=== PATIENT | female | born 1960 | race Caucasian/White ===

== ENCOUNTER → 2017-06-25 | Outpatient (CLI) | payer BC ==
[~2017-06-25] MED LIST: SIMV-150 PO
[2017-06-25 12:44] LABS: ALT/SGPT 20 U/L (12-78); BLOOD UREA NITROGEN 15 mg/dl (7-18); BUN/CREATININE RATIO 22.2 (10-20); CALCIUM 9.3 mg/dl (8.5-10.1); CARBON DIOXIDE 25 mmol/L (21-32); CHLORIDE 107 mmol/L (98-107); CHOLESTEROL 266 mg/dl (0-200); CREATININE 0.69 mg/dl (0.60-1.20); GLUCOSE 81 mg/dl (70-99); POTASSIUM 3.9 mmol/L (3.5-5.1); SODIUM 140 mmol/L (136-145); TRIGLYCERIDES 89 mg/dl (0-150); VERY LOW DENSITY LIPOPROT CALC 18 mg/dl
[2017-06-25 12:47] LABS: ALB/GLOB RATIO 1.1 (0.9-2); ALKALINE PHOSPHATASE 70 U/L (45-117); AST/SGOT 12 U/L (15-37); CHOLESTEROL/HDL RATIO 3.8; HDL CHOLESTEROL 70 mg/dl; LDL CHOLESTEROL CALCULATED 178 mg/dl
== END | disposition home or self-care (01) ==
LOC: C.LABBFT 09:37
PROVIDERS: ATTEND Physician Assistant Medical
DX: E78.00 Pure hypercholesterolemia, unspecified (principal); M19.90 Unspecified osteoarthritis, unspecified site; R07.89 Other chest pain; Q76.5 Cervical rib; Z63.6 Dependent relative needing care at home

== ENCOUNTER → 2018-04-01 | Outpatient (CLI) | payer OTHER ==
--- NOTE | 2018-04-01 11:42 | DIAGNOSTIC IMAGING REPORT ---
C-SPINE ROUTINE 4 OR 5 VIEWS, THORACIC SPINE 3 VIEWS ROUTINE HISTORY: 57 years-old Female NECK PAIN acute neck and mid back pain COMPARISON: None available TECHNIQUE: 5 views of the cervical spine and 3 views of the thoracic spine FINDINGS: CERVICAL: Mild kyphotic curvature of the cervical spine centered at C4-C5. Moderate intervertebral disc space narrowing is seen at C4-C5, C5-C6 and C6-C7. Mild spondylitic spurring is noted at several levels. There is no acute fracture, subluxation or significant bony neuroforaminal stenosis. There is suggested mild right-sided bony neuroforaminal stenosis at C4-C5 and C5-C6. No prevertebral soft tissue swelling. Imaged lung apices appear clear. THORACIC: No acute fracture or subluxation. Mild multilevel spondylitic spurring without significant intervertebral disc space narrowing. Imaged lung gonzalez appear clear. IMPRESSION: 1. No acute fracture or subluxation of the cervical or thoracic spine. 2. Multilevel degenerative changes of the cervical spine as detailed above. The above report was generated using voice recognition software. It may contain grammatical, syntax or spelling errors. Electronically signed by: Steve Jimenez M.D. 04/01/2018 11:41 AM Dictated Date/Time: 04/01/2018 11:37 AM
[2018-04-01 13:35] LABS: ALBUMIN 3.7 gm/dl (3.4-5.0); ALKALINE PHOSPHATASE 66 U/L (45-117); ALT/SGPT 20 U/L (12-78); AST/SGOT 14 U/L (15-37); BLOOD UREA NITROGEN 15 mg/dl (7-18); CALCIUM 9.2 mg/dl (8.5-10.1); CARBON DIOXIDE 26 mmol/L (21-32); CHOLESTEROL 281 mg/dl (0-200); CREATININE 0.68 mg/dl (0.60-1.20); GLUCOSE 86 mg/dl (70-99); LDL CHOLESTEROL CALCULATED 197 mg/dl; SODIUM 140 mmol/L (136-145); TOTAL PROTEIN 7.2 gm/dl (6.4-8.2)
== END | disposition home or self-care (01) ==
LOC: C.LABPVFM 10:51
PROVIDERS: ATTEND Nurse Practitioner Family
DX: M54.2 Cervicalgia (principal); M54.89 Other dorsalgia

== ENCOUNTER 2024-02-29 06:08 | Inpatient (IN) ==
--- NOTE | 2024-02-17 11:12 | Anesthesiology Consultation ---
Date of Service February 17, 2024 Assessment & Plan (1) Encounter for pre-operative examination: - PCP pre-operative evaluation 02/14/24 [place]: "...cleared as a low risk for surgery. Anesthesia should be aware of her bradycardia Hx as below. Hx bradycardia with anesthesia - patient notes that her HR was low during her last colonoscopy. Denies having any issues with prior colonoscopies. Denies any symptoms during the time of colonoscopy. - 02-14-24 EKG: Sinus Yusuf (50), normal..." - Per lpn rn on 02/17/24: No known infectious disease contacts, current infectious disease symptoms in past 10 days or COVID positive test result in the past 30 days. Chart Review Chart Review: Acceptable Risk for Surgery and Patient NOT seen in Pre Admission Testing History Surgery Operation Date: 02/29/24 11:05 Proposed Procedures p L5-S1 Decompression and Fusion with Spinal Cord Monitoring - Андрей Avitia, Height/Weight Height: 5 ft 1 in Weight: 72.575 kg Allergies Allergy/AdvReac Type Severity Reaction Status Date / Time strawberry Allergy Intermediate HIVES Verified 02/17/24 10:13 prednisone AdvReac Intermediate mood Verified 02/17/24 10:13 swings/emotional disturbances shellfish derived AdvReac Intermediate Diarrhea Verified 02/17/24 10:13 Medications Home Medications Medication Instructions Recorded Confirmed Last Taken doxylamine succinate 25 mg tablet 25 mg PO HS PRN Sleep 03/24/22 02/17/24 Unknown (Sleep Aid (doxylamine)) atorvastatin 10 mg tablet 10 mg PO HS #90 tabs 02/01/24 02/17/24 Unknown celecoxib 200 mg capsule (Celebrex) 200 mg PO QAM 02/17/24 02/17/24 Unknown cholecalciferol (vitamin D3) 25 5,000 unit PO BID 02/17/24 02/17/24 Unknown mcg (1,000 unit) tablet (Vitamin D3) diphenhydramine 25 1 tab PO HS 02/17/24 02/17/24 Unknown mg-acetaminophen 500 mg tablet (Acetaminophen PM Extra Strength) glucosamine 750 [id number] 1 tab PO QAM 02/17/24 02/17/24 Unknown no1 644 mg-C 30 mg-ross 1 mg tablet (Osteo Bi-Flex Triple Strength) Past Medical History Medical History (Updated 02/17/24 @ 11:07 by Pat Rich PA-C) Chronic back pain History of colitis hx - last episode at the beginning of March 2022 History of COVID-24 September 2021 - cold symptoms and loss of taste and smell. resolved Hx of squamous cell carcinoma arm Hyperlipidemia Osteoarthritis Paresthesia left lower extremity and foot - chronic, r/t back issues Pityriasis rosea Past Family History Family History Father Myocardial infarction Mother Myocardial infarction Other No family history of adverse response to anesthesia Denies family history of Ovarian cancer Prostate cancer Breast cancer Colorectal cancer Past Surgical History Surgical History H/O squamous cell carcinoma excision History of laparoscopy x2 Hx of colonoscopy S/P [place]-BSO Social History Smoking Status: Former smoker tobacco type: cigarettes Smoking cigarettes per day: 10 Do You Dip or Chew Tobacco: No Smoking End Date: 01/2022 Hx Alcohol Use: Yes Alcohol type: beer alcohol intake frequency: a few times a month Hx Substance Use: No substance use type: does not use Lab Results Anesthesia Preop Results Results Anesthesia Widget: WBC 6.29 K/ul (4.8-10.8) 02/16/24 Hgb 13.4 g/dl (12.0-16.0) 02/16/24 Hct 41.2 % (37.0-47.0) 02/16/24 Plt 227 K/uL (130-400) 02/16/24 Na 139 mmol/L (136-145) 02/16/24 K 4.1 mmol/L (3.5-5.1) 02/16/24 Cl 107 mmol/L (98-107) 02/16/24 CO2 26 mmol/L (21-32) 02/16/24 BUN 14 mg/dl (6-23) 02/16/24 Creat 0.68 mg/dl (0.6-1.2) 02/16/24 Glucose Level 96 mg/dl (70-99(Fasting)) 02/16/24 PT 9.9 Seconds (9.0-12.0) 02/16/24 PTT 25 Seconds (21-31) 02/16/24 INR 0.9 (0.9-1.1) 02/16/24 Urine Color Yellow 02/16/24 Urine Appearance Clear (Clear) 02/16/24 Urine pH 5.5 (4.5-7.5) 02/16/24 Urine Specific [place] 1.006 (1.000-1.030) 02/16/24 Urine Protein Negative (Negative) 02/16/24 Urine Glucose (UA) Negative (Negative) 02/16/24 Urine Ketones Negative (Negative) 02/16/24 Urine Blood Negative (Negative) 02/16/24 Urine Nitrite Negative (Negative) 02/16/24 Urine Bilirubin Negative (Negative) 02/16/24 Urine Urobilinogen Negative (Negative) 02/16/24 Urine Leukocyte Esterase Trace (Negative) H 02/16/24 Urine WBC (Auto) 0-5 /hpf (0-5) 02/16/24 Urine RBC (Auto) 3-5 /hpf (0-2) H 02/16/24 Urine Hyaline Casts (Auto) 0-2 /lpf (0-2) 02/16/24 Urine Epithelial Cells (Auto) 0-2 /hpf (0-2) 02/16/24 Urine Bacteria (Auto) None Seen (None Seen) 02/16/24 Blood Type A Positive 02/16/24 Antibody Screen NEGATIVE 02/16/24 Testing Electrocardiogram Date: 02/16/24 Sinus bradycardia, rate 49 bpm Chest X-Ray Date: 02/16/24 No acute process. Other Testing Low dose lung CT 01/12/24 1. Mild emphysema. 2. Stable 3 mm right upper lobe subpleural nodule. No new or suspicious pulmonary nodules
[2024-02-29] MEDS: ACETAMINOPHEN 500 MG TAB PO SCH ×2 (06:48→20:57)
[2024-02-29] MEDS: LR 15ML/HR IV SCH (06:48)
[2024-02-29] MEDS: GABAPENTIN 600 MG DOSE PO SCH (06:48)
[2024-02-29] MEDS: LR 60ML/HR IV SCH (06:49)
[2024-02-29] MEDS: CeleBREX 200 MG CAP PO SCH (06:49)
[2024-02-29] MEDS ORDERED: KETAMINE HCL 10MG/ML SYR ONE (07:01)
[2024-02-29] MEDS ORDERED: HYDROmorphone INJ 2 MG/ML SYR/VIAL ONE (07:01)
[2024-02-29] MEDS ORDERED: MIDAZOLAM HCL 1 MG/ML 2ML VIAL ONE (07:01)
[2024-02-29] MEDS ORDERED: ePHEDrine sulfate 50 MG/5 ML SYR ONE (07:03)
[2024-02-29] MEDS ORDERED: LIDOCAINE 2% 2 ML VIAL/AMP(20MG/ML) INFIL ONE (07:03)
[2024-02-29] MEDS ORDERED: DEXAMETHASONE SOD INJ 4 MG/ML VIAL ONE (07:03)
[2024-02-29] MEDS ORDERED: PHENYLEPHRINE 100MCG/ML 10ML SYR IV ONE (07:03)
[2024-02-29] MEDS ORDERED: ONDANSETRON INJ 2 MG/ML 2 ML VIAL ONE (07:03)
[2024-02-29] MEDS ORDERED: SODIUM CHLORIDE 0.9% PF INJ 10 ML VIAL ONE (07:03)
[2024-02-29] MEDS ORDERED: GLYCOPYRROLATE 0.2 MG/ML VIAL ONE (07:03)
[2024-02-29] MEDS ORDERED: ROCURONIUM BROMIDE 10 MG/ML 5 ML VIAL IV ONE (07:03)
[2024-02-29] MEDS ORDERED: PROPOFOL IV EMULSION 10 MG/ML 20 ML VIAL IV ONE (07:03)
[2024-02-29] MEDS ORDERED: SUGAMMADEX SODIUM 200 MG/2 ML VIAL IV ONE (07:03)
--- NOTE | 2024-02-29 07:44 | History & Physical Bridge Note ---
Date of Service February 29, 2024 History & Physical Bridge Note I have examined the patient, reviewed the History & Physical and in the interval since the performance of the History & Physical I have noted the following changes of clinical significance: no changes noted
--- NOTE | 2024-02-29 07:45 | History & Physical Report ---
Date of Service February 29, 2024 Assessment & Plan (1) Lumbar radiculopathy: Plan: L5-S1 decompression and fusion History of Present Illness Chief Complaint: Back and leg pain Primary Care Provider: Domenico Lr DO This is a 63-year-old female presents with chronic persistent back and leg pain and failing since course of nonoperative care she is here for surgical invention. Allergies Allergy/AdvReac Type Severity Reaction Status Date / Time strawberry Allergy Intermediate HIVES Verified 02/29/24 06:33 prednisone AdvReac Intermediate mood Verified 02/29/24 06:33 swings/emotional disturbances shellfish derived AdvReac Intermediate Diarrhea Verified 02/29/24 06:33 Home Medications Medication Instructions Recorded Confirmed Type doxylamine succinate 25 mg tablet 25 mg PO HS PRN Sleep 03/24/22 02/29/24 History (Sleep Aid (doxylamine)) atorvastatin 10 mg tablet 10 mg PO HS #90 tabs 02/01/24 02/29/24 Rx celecoxib 200 mg capsule (Celebrex) 200 mg PO QAM 02/17/24 02/29/24 History cholecalciferol (vitamin D3) 25 5,000 unit PO BID 02/17/24 02/29/24 History mcg (1,000 unit) tablet (Vitamin D3) diphenhydramine 25 1 tab PO HS 02/17/24 02/29/24 History mg-acetaminophen 500 mg tablet (Acetaminophen PM Extra Strength) glucosamine 750 [id number]-hypkqcukqjy-nep 1 tab PO QAM 02/17/24 02/29/24 History no1 644 mg-C 30 mg-ross 1 mg tablet (Osteo Bi-Flex Triple Strength) Past Med/Surg History Problem List Lumbar radiculopathy Paresthesia of left lower extremity entered into EMRandad last edited 07/14/23 Bulging of lumbar intervertebral disc Left sided sciatica Rash entered into EMR and last edited 03/15/23 History of squamous cell carcinoma Abnormal skin growth Acute low back pain Left hip pain History of smoking 30 or more pack years patient quit smoking on 01-17-22 Elevated BP without diagnosis of hypertension Insomnia Left ear pain entered into EMR and last edited 05/20/20 Annual physical exam Colitis entered into EMR and last edited 09/22/19 Vitamin D deficiency (Acute) Hypercholesterolemia (Acute) External hemorrhoids (Acute) Decreased hearing (Acute) Arthritis (Acute) Medical History Hyperlipidemia Hx of squamous cell carcinoma arm Paresthesia left lower extremity and foot - chronic, r/t back issues Osteoarthritis Chronic back pain History of colitis hx - last episode at the beginning of March 2022 History of COVID-24 September 2021 - cold symptoms and loss of taste and smell. resolved Pityriasis rosea Surgical History S/P [place]-BSO History of laparoscopy x2 H/O squamous cell carcinoma excision Hx of colonoscopy Family History Father Myocardial infarction Mother Myocardial infarction Other No family history of adverse response to anesthesia Denies family history of Ovarian cancer Prostate cancer Breast cancer Colorectal cancer Social History Smoking Status: Former smoker Tobacco Type: Cigarettes Age Started Using Tobacco: 15; Age Quit Using Tobacco: 61; Cigarettes Per Day: 10; Smoking End Date: 01/2022; Second Hand Exposure: Yes (slight exposure); Do You Dip or Chew Tobacco: No; Tobacco Cessation Education Requested by Patient: No Hx Alcohol Use: Yes Alcohol type: beer Alcohol Intake Frequency: Monthly or Less Hx Substance Use: No Preferred Language: Yi Communication Ability: Effective Visual Impairment: Limited Hearing Ability: Normal Mortgage Lender Required: No Beliefs That Will Affect Care: None marital status: Current Living Situation: Spouse How many Children do You have: 1 How many Children do You have Comment: Step-son Other Information That Helps Us Care for You: No Feels Safe at Home: Yes Safety Concerns: Feels Safe At This Time Childhood Exposure to Second-Hand Smoke: No Diet: regular caffeine: Yes during the past year weight has: remained stable Dental Care, Regularly: Yes Physical Activity Frequency: Does not Exercise Seatbelt Use: always Sunscreen Use: No Do you think of yourself as: straight/heterosexual Gender Identity: Female Assistive Devices: Glasses Physical Exam Physical Exam: Patient is alert and oriented heart regular in rhythm lungs clear Results & Data Results & Data Vital Signs (Past 12 Hours) Vital Signs Temp Pulse Resp BP Pulse Ox O2 Del Method 02/29/24 06:36 36.8 C 77 20 183/89 H 97 Room Air
[2024-02-29] MEDS ORDERED: ATROPINE SULFATE 0.1 MG/ML 10ML SYR IV PRN (07:47)
[2024-02-29] MEDS ORDERED: ePHEDrine sulfate 50 MG/ML AMP IV PRN (07:47)
[2024-02-29] MEDS ORDERED: HYDROmorphone INJ 2 MG/ML SYR/VIAL IV PRN (07:47)
[2024-02-29] MEDS ORDERED: PROMETHAZINE HCL 6.25 MG in SODIUM CHLORIDE 0.9% 50 ML IV PRN (07:47)
[2024-02-29] MEDS ORDERED: ONDANSETRON INJ 2 MG/ML 2 ML VIAL IV PRN ×2 (07:47→10:49)
[2024-02-29] MEDS: ceFAZolin 2000MG 2,000 MG/15 ML SYR IV SCH (08:00)
[2024-02-29] MEDS: BUPIVACAINE/EPINEPHRINE 0.25% 1:200,000 30 ML VIAL ONE (08:20)
[2024-02-29] MEDS: ceFAZolin 330 MG/ML 1 GM VIAL ONE (08:21)
[2024-02-29] MEDS: FLOSEAL HEMOSTATIC MATRIX 10ML TOP ONE (09:13)
--- NOTE | 2024-02-29 09:25 | Operative Report ---
Post Operative Report Pre & Post Diagnosis Operation Date: 02/29/24 07:45 Pre-Op Diagnosis: Spinal Stenosis of Lumbar Region with Radiculopathy Post-Op Diagnosis: Spinal Stenosis of Lumbar Region with Radiculopathy I identified the patient and participated in the time-out.: Yes Procedure Operation Date: 02/29/24 07:45 Actual Procedures #1 lumbar decompression bilateral medial facetectomies and foraminotomies L4-L5 L5-S1. #2 posterior spinal fusion L5-S1. #3 placed posterior instrumentation L5-S1. #4 interbody fusion L5-S1. #5 placement of Spira 11 x 22 mm x 2 at L5- S1. #6 placement locally harvested morselized autograft and posterior gutters. #7 placement of infuse collagen sponge, with Koros in the posterior lateral gutters and Morpheus bone graft in the interbody space. DO Surgeon Андрей Avitia, Field Enumerator Lyric Muñoz Estimated Blood Loss 50 Findings Consistent with Post-Op Diagnosis Specimens None Indications This is a 63-year-old female who presents above-mentioned diagnosis after failing course of nonoperative care is here for surgical invention. Description of Procedure Patient was met with identified informed consent obtained. Patient was then taken to the operative suite underwent ablation placed in a prone position on the Jose Luis table on top of the New frame. All bony prominences well-padded eyes inspected to ensure no external precipice spinal. This point the lumbar spine was prepped and draped in normal sterile fashion. Sharp dissection with the assistance of Bovie cautery was performed down to exposing the lamina transverse processes of L5 and the sacral ala bilaterally. From caudal cephalad fashion complete laminectomy of L5 was performed including bilateral medial facetectomies and foraminotomies addressing severe spinal stenosis. Then I performed a partial laminectomy of L4 including bilateral medial facetectomies addressing lateral recess disease. Pedicle screws then placed in L5 and S1 levels bilaterally with assistance of fluoroscopy in the process aidan placed. By way of transforaminal approach on the right a discectomy of L5-S1 was performed endplates guided to subcortical bleeding bone and 11 x 22 mm spiral cage filled with Morpheus bone graft tapped in position. Then proceeded to the left transforaminal region at L5-S1. Again discectomy performed endplates guided to subcortical bleeding bone and a second 11 x 22 mm spiral cage filled with Morpheus bone graft tapped in position. The rods were then compressed locked into final position bilaterally. The transverse processes of L5 and the sacral ala burred to subcortical bleeding bone. Infuse collagen sponge combined with Koros bone graft and local autograft placed in the posterior lateral gutters. 15 round SAM drain inserted. The incision was then closed with 1 Vicryl to fascia 2-0 Vicryl subcutaneously and 4 Monocryl for final skin closure. Steri- Strips sterile dressing placed. Patient awakened taken to PACU stable condition. Please note spinal cord monitoring was utilized at the procedure no changes noted. Sarah Muñoz was present at the entire procedure and all the patient positioning complex portion of the surgery and final skin closure. I attest to the content of the Intraoperative Record and any orders documented therein. Any exceptions are noted below.
[2024-02-29] MEDS: fentaNYL citrate PF 100 MCG/2 ML VIAL IV PRN (09:45)
--- NOTE | 2024-02-29 10:03 | Fluoroscopy Report ---
INTRAOPERATIVE RADIOGRAPHS CLINICAL HISTORY: L5-S1 spinal fusion. Fluoro time: 22 seconds Ka,r: 18.32 mGy FINDINGS: 2 spot fluoroscopic views of the lumbar spine are presented. There has been discectomy at L 5-S1 with laminectomy and posterior fusion at this level. Interpedicular screws are in place. The met allic hardware appears intact. IMPRESSION: Intraoperative images from lumbar spinal fusion surgery as above. Electronically signed by: Benedicto Garcia M.D. 02/29/2024 10:01 AM
[2024-02-29] MEDS: LACTATED RINGER'S 1,000 ML IV SCH (10:40)
[2024-02-29] MEDS ORDERED: DO NOT ADMINISTER FLU VACCINE PRN (10:49)
[2024-02-29] MEDS ORDERED: ALUMINUM/MAGNESIUM SUSP 30 ML UDC PO PRN (10:49)
[2024-02-29] MEDS ORDERED: PROMETHAZINE HCL 12.5 MG in SODIUM CHLORIDE 0.9% 50 ML IV PRN (10:49)
[2024-02-29] MEDS ORDERED: HYDROmorphone INJ 1 MG/ML SYRINGE IV PRN (10:49)
[2024-02-29] MEDS ORDERED: ACETAMINOPHEN 500 MG TAB PO PRN (10:49)
[2024-02-29] MEDS ORDERED: DO NOT ADMINISTER PNEUMOCOCCAL VACCINE PRN (10:49)
[2024-02-29] MEDS ORDERED: traMADol HCL 50 MG TABLET PO PRN (10:49)
[2024-02-29] MEDS ORDERED: HYDROmorphone INJ 0.5 MG/0.5 ML SYR IV PRN (10:49)
[2024-02-29] MEDS ORDERED: diphenhydrAMINE Capsule 25 MG CAP PO PRN (10:49)
[2024-02-29] MEDS ORDERED: NALOXONE HCL 0.4 MG/1 ML VIAL/CARP IV PRN (10:49)
[2024-02-29] MEDS ORDERED: ONDANSETRON 4 MG OD TAB PO PRN (10:49)
[2024-02-29] MEDS ORDERED: hydrOXYzine HCl 25 MG TAB PO PRN (10:49)
[2024-02-29] MEDS ORDERED: FAMOTIDINE 20 MG TAB PO PRN (10:49)
[2024-02-29] MEDS ORDERED: bisacodyL 10 MG SUPP PR PRN (10:49)
[2024-02-29] MEDS ORDERED: METOCLOPRAMIDE HCL INJ 5 MG/ML 2 ML VIAL IV PRN (10:49)
[2024-02-29] MEDS ORDERED: LORazepam 0.5 MG TAB PO PRN (10:49)
[2024-02-29] MEDS ORDERED: MAGNESIUM HYDROXIDE SUSP 30 ML UDC PO PRN (10:49)
[2024-02-29] MEDS ORDERED: ACETAMINOPHEN 1,000 MG/100 ML VIAL IV PRN (10:49)
[2024-02-29] MEDS ORDERED: SOD PHOSPHATE/SOD BIPHOSPHATE ENEMA 132 ML BTL PR PRN (10:49)
[2024-02-29] MEDS ORDERED: LORazepam 0.5 MG in SYRINGE 0.25 ML IV PRN (10:49)
--- NOTE | 2024-02-29 11:14 | Hospitalist Consultation ---
Date of Consultation February 29, 2024 Assessment & Plan (1) Lumbar radiculopathy: (2) S/P lumbar spine operation: (3) Hyperlipidemia: (4) Osteoarthritis: (5) Insomnia: Plan Conchis Kothari is a 63y/o F with PMHx of insomnia, vitamin D deficiency, hyperlipidemia, osteoarthritis, colitis and other problems listed below [facility]. Patient is now s/p L5-S1 decompression and fusion for treatment of chronic, persistent back and leg pain. 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 Avitia). Patient seen in collaboration with Dr. Navarrete. Please see addendum. I spent a total of 75 minutes coordinating, documenting, and providing care for this patient excluding time spent in the performance of separately billed services. This included personally reviewing all current laboratories and imaging studies, medical reconciliation, outpatient chart review and discussion with specialists. This chart was completed in part utilizing Speech Voice Recognition Software. Grammatical errors, random word insertions, pronoun errors, and incomplete sentences are an occasional consequence of this system due to software limitations, ambient noise, and hardware issues. Any formal questions or concerns about the content, text, or information contained within the body of this dictation should be directly addressed to the provider for clarification. Supervising Physician Co-Signing Physician Notes Patient was seen and examined wit Meron SU at bedside. Chart reviewed. Case discussed with Meron SU and agree with the documentation above. In summary, this is a 63 year old female admitted under ortho service after elective lumbar decompression and fusion surgery today by Dr Avitia. Post op patient complains of some back pain otherwise no other issues. Vitals stable. Lying in bed, not in acute distress, AAOx3, conversing well, chest clear, HS normal, abd benign, no LE edema, Surgical dressing intact with drain with serosang output. Diet, DVT ppx, activities, pain management and disposition per primary team. Will continue to follow the patient throughout the hospital stay and address any other medical conditions that may arise during the stay. Rest as per the note above. History of Present Illness Reason for Consultation: Post-Operative Medical Management Requesting Physician: Андрей Avitia DO Attending Physician: Андрей Avitia DO History of Present Illness Conchis Kothari is a 63y/o F with PMHx of insomnia, vitamin D deficiency, hyperlipidemia, osteoarthritis, colitis and other problems listed below [facility]. Patient is now s/p L5-S1 decompression and fusion for treatment of chronic, persistent back and leg pain. History obtained from patient and associated chart review. Patient seen at bedside with Dr. Navarrete. Patient currently reporting 6/10 pain in her lower back. Describes this pain as more of a dull/achy sensation. No catheter in place, has not urinated yet. Still having some tingling in her left foot, which is unchanged from baseline/chronic status. Denies any SOB, chest pain, abdominal pain or lightheadedness/dizziness. Patient offers no other concerns or complaints at this time. Agreeable with plan moving forward. Allergies Allergy/AdvReac Type Severity Reaction Status Date / Time strawberry Allergy Intermediate HIVES Verified 02/29/24 06:33 prednisone AdvReac Intermediate mood Verified 02/29/24 06:33 swings/emotional disturbances shellfish derived AdvReac Intermediate Diarrhea Verified 02/29/24 06:33 Home Medications Medication Instructions Recorded Confirmed Type doxylamine succinate 25 mg tablet 25 mg PO HS PRN Sleep 03/24/22 02/29/24 History (Sleep Aid (doxylamine)) atorvastatin 10 mg tablet 10 mg PO HS #90 tabs 02/01/24 02/29/24 Rx celecoxib 200 mg capsule (Celebrex) 200 mg PO QAM 02/17/24 02/29/24 History cholecalciferol (vitamin D3) 25 5,000 unit PO BID 02/17/24 02/29/24 History mcg (1,000 unit) tablet (Vitamin D3) diphenhydramine 25 1 tab PO HS 02/17/24 02/29/24 History mg-acetaminophen 500 mg tablet (Acetaminophen PM Extra Strength) glucosamine 750 de-lakwlyaated-cte 1 tab PO QAM 02/17/24 02/29/24 History no1 644 mg-C 30 mg-ross 1 mg tablet (Osteo Bi-Flex Triple Strength) oxycodone 5 mg tablet 5 mg PO Q6H PRN pain #30 tabs 02/29/24 Rx tramadol 50 mg tablet 50 mg PO Q6H PRN pain, moderate 02/29/24 Rx #30 tabs Patient History Medical History Hx of squamous cell carcinoma arm Paresthesia left lower extremity and foot - chronic, r/t back issues History of colitis hx - last episode at the beginning of March 2022 History of COVID-24 September 2021 - cold symptoms and loss of taste and smell. resolved Pityriasis rosea Surgical History S/P [place]-BSO History of laparoscopy x2 H/O squamous cell carcinoma excision Hx of colonoscopy Family History Father Myocardial infarction Mother Myocardial infarction Other No family history of adverse response to anesthesia Denies family history of Ovarian cancer Prostate cancer Breast cancer Colorectal cancer Social History Smoking Status: Former smoker Tobacco Type: Cigarettes Age Started Using Tobacco: 15; Age Quit Using Tobacco: 61; Cigarettes Per Day: 10; Smoking End Date: 01/2022; Second Hand Exposure: Yes (slight exposure); Do You Dip or Chew Tobacco: No; Tobacco Cessation Education Requested by Patient: No Hx Alcohol Use: Yes Alcohol type: beer Alcohol Intake Frequency: Monthly or Less Hx Substance Use: No Preferred Language: Hong Konger Communication Ability: Effective Visual Impairment: Limited Hearing Ability: Normal Inbound Call Center Agent Required: No Beliefs That Will Affect Care: None marital status: Current Living Situation: Spouse How many Children do You have: 1 How many Children do You have Comment: Step-son Other Information That Helps Us Care for You: No Feels Safe at Home: Yes Safety Concerns: Feels Safe At This Time Childhood Exposure to Second-Hand Smoke: No Diet: regular caffeine: Yes during the past year weight has: remained stable Dental Care, Regularly: Yes Physical Activity Frequency: Does not Exercise Seatbelt Use: always Sunscreen Use: No Do you think of yourself as: straight/heterosexual Gender Identity: Female Assistive Devices: Glasses Review of Systems Review of Systems: At least ten systems reviewed and negative, except as noted in the HPI. Physical Exam Physical Exam: General: WD/WN, vitals as above, NAD, laying down in bed, pleasant, conversing appropriately. A+Ox3, euthymic affect. HEENT: Normocephalic, atraumatic. Normal inspection, PERRL, conjunctivae normal, anicteric sclerae. External ear and nose normal, oropharynx normal. Respiratory: Normal respiratory effort, lungs clear to auscultation, no wheeze, rales, rhonchi. No accessory muscle use. Cardiovascular: Regular rate, rhythm, no murmur, normal peripheral pulses, no BLE edema. Vessels: No JVD. Abdomen/GI: Normal bowel sounds, soft, nontender, no hepatosplenomegaly. Extremities/Musculoskeletal: No cyanosis or clubbing, moves all extremities. SAM drain in place, appropriately draining serosanguineous fluid. Neurologic: PERRL, EOMI, accommodation nl, no face palsy, no dysarthria, CN's II-XI not formally tested but appear intact bilaterally. Skin: No rashes, normal color, warm/dry. Results & Data Results & Data Vital Signs (Past 12 Hours) Vital Signs Temp Pulse Resp BP Pulse Ox O2 Del Method O2 Flow Rate 02/29/24 10:40 36.3 C L 56 L 16 155/88 H 99 Room Air 02/29/24 10:25 36.1 C L 77 14 146/78 H 100 Nasal Cannula 2 02/29/24 10:15 70 18 148/83 H 100 Nasal Cannula 2 02/29/24 10:05 66 13 144/80 H 96 Nasal Cannula 2 02/29/24 09:56 78 13 144/79 H 96 Room Air 02/29/24 09:45 77 12 143/74 H 100 Oxymask 11 02/29/24 09:38 36.8 C 80 12 142/81 H 99 Oxymask 11 02/29/24 06:36 36.8 C 77 20 183/89 H 97 Room Air Diagnostic Findings Lumbar Spine X-Ray 02/29/24 07:00 INTRAOPERATIVE RADIOGRAPHS CLINICAL HISTORY: L5-S1 spinal fusion. Fluoro time: 22 seconds Ka,r: 18.32 mGy FINDINGS: 2 spot fluoroscopic views of the lumbar spine are presented. There has been discectomy at L5-S1 with laminectomy and posterior fusion at this level. Interpedicular screws are in place. The metallic hardware appears intact. IMPRESSION: Intraoperative images from lumbar spinal fusion surgery as above. Electronically signed by: Benedicto Garcia M.D. 02/29/2024 10:01 AM Medications Administered Acetaminophen (Acetaminophen 500 Mg Tab) 1,000 mg PO PREOP BUTCH Stop: 02/29/24 18:00 Last Admin: 02/29/24 06:48 Dose: 1,000 mg Documented By: [facility] Celecoxib (Celebrex 200 Mg Cap) 200 mg PO PREOP BUTCH Stop: 02/29/24 18:00 Last Admin: 02/29/24 06:49 Dose: 200 mg Documented By: SVITLANA Fentanyl Citrate (Fentanyl Citrate Pf 100 Mcg/2 Ml Vial) 50 mcg IV Q5M PRN PRN Reason: PACU Use Only-Pain Stop: 02/29/24 15:47 Last Admin: 02/29/24 09:45 Dose: 50 mcg Documented By: MATT Gabapentin (Gabapentin 600 Mg Dose) 600 mg PO PREOP BUTCH Stop: 02/29/24 18:00 Last Admin: 02/29/24 06:48 Dose: 600 mg Documented By: [facility] Lactated Ringer's (Lr) 1,000 mls @ 15 mls/hr IV .Q24H BUTCH Stop: 03/01/24 05:59 Last Infusion: 02/29/24 07:51 Dose: Infused Documented By: [facility] Admin: 02/29/24 06:48 Dose: 15 mls/hr Documented By: [facility] Lactated Ringer's (Lr) 1,000 mls @ 60 mls/hr IV .[id number] BUTCH Stop: 02/29/24 22:39 Last Admin: 02/29/24 06:49 Dose: Not Given Documented By: JACKSON Cefazolin Sodium (Ancef 2000mg) 2,000 mg in 15 mls @ 3.75 mls/min IV PREOP BUTCH; Protocol Stop: 02/29/24 18:00 Last Admin: 02/29/24 08:00 Dose: 3.75 mls/min Documented By: ANTONINA Lactated Ringer's (Lr) 1,000 mls @ 100 mls/hr IV .Q10H BUTCH Stop: 03/30/24 10:48 Last Admin: 02/29/24 10:40 Dose: 100 mls/hr Documented By: YESSICA Discontinued Medications Bupivacaine HCl/Epinephrine Bitart (Bupivacaine/Epinephrine 0.25% 1:200,000 30 Ml Vial) Confirm Administered Dose 30 ml .ROUTE .STK-MED ONE Stop: 02/29/24 06:50 Last Admin: 02/29/24 08:20 Dose: 25 ml Documented By: ALPESH Cefazolin Sodium (Cefazolin 330 Mg/Ml 1 Gm Vial) Confirm Administered Dose 990 mg .ROUTE .STK-MED ONE Stop: 02/29/24 06:50 Last Admin: 02/29/24 08:21 Dose: 990 mg Documented By: ALPESH Miscellaneous ( Floseal Hemostatic Matrix 10ml) 10 ml TOP ONCE ONE Stop: 02/29/24 08:21 Last Admin: 02/29/24 09:13 Dose: 10 ml Documented By: ALPESH (3) Hyperlipidemia Hyperlipidemia type: unspecified Qualified Code(s): E78.5 - Hyperlipidemia, unspecified (4) Osteoarthritis Osteoarthritis location: unspecified site Osteoarthritis type: unspecified Q ualified Code(s): M19.90 - Unspecified osteoarthritis, unspecified site (5) Insomnia Insomnia type: unspecified Qualified Code(s): G47.00 - Insomnia, unspecified
--- NOTE | 2024-02-29 11:23 | Anesthesiology Progress Note ---
Date of Service February 29, 2024 Anesthesia Post Procedure Vital Signs Vital Signs: Temp Pulse Resp BP Pulse Ox O2 Del Method O2 Flow Rate 02/29/24 11:13 36.4 C L 67 18 131/81 99 Room Air 02/29/24 10:40 36.3 C L 56 L 16 155/88 H 99 Room Air 02/29/24 10:25 36.1 C L 77 14 146/78 H 100 Nasal Cannula 2 02/29/24 10:15 70 18 148/83 H 100 Nasal Cannula 2 02/29/24 10:05 66 13 144/80 H 96 Nasal Cannula 2 02/29/24 09:56 78 13 144/79 H 96 Room Air 02/29/24 09:45 77 12 143/74 H 100 Oxymask 11 02/29/24 09:38 36.8 C 80 12 142/81 H 99 Oxymask 11 02/29/24 06:36 36.8 C 77 20 183/89 H 97 Room Air Pain Intensity Back: Pain Intensity: 5 Transfer of Care Handoff Completed per policy Notes Mental Status: alert / awake / arousable Patient Amnestic to Procedure: Yes Nausea / Vomiting: adequately controlled Pain: adequately controlled Airway Patency, RR, SpO2: stable & adequate BP & HR: stable & adequate Hydration State: stable & adequate Anesthetic Complications: no major complications apparent
[2024-02-29] MEDS: KETOROLAC TROMETHAMINE 15 MG/ML VIAL IV SCH (11:41)
[2024-02-29] MEDS: oxyCODONE HCL IR 5 MG TAB (IMMEDIATE RELEASE) PO PRN (15:15)
[2024-02-29] MEDS: ceFAZolin 1000MG 1,000 MG/7.5 ML SYR IV SCH (15:52)
[2024-02-29] MEDS: CHOLECALCIFEROL 125 MCG (5,000 UNITS) TAB PO SCH (20:57)
[2024-02-29] MEDS: DOCUSATE SODIUM/SENNA 50/8.6MG TAB PO SCH (20:58)
[2024-02-29] MEDS: ATORVASTATIN 10 MG TAB PO SCH (20:58)
[2024-02-29] MEDS: diphenhydrAMINE Capsule 25 MG CAP PO SCH (20:58)
[2024-03-01] MEDS: POLYETHYLENE (MIRALAX) 17 GM PACK PO SCH (05:38)
[2024-03-01 06:03] LABS: BUN Creatinine Ratio 14.3 (10-20); Calcium 8.4 mg/dl (8.6-10.3); Creatinine Clr Calc Pharmacy 82.5 ml/min; Est GFR (African American) 109.9 ml/min; Est GFR (Non-African American) 94.8 ml/min; Potassium 4.1 mmol/L (3.5-5.1)
[2024-03-01 06:41] LABS: Basophils # (auto) 0.04 K/uL (0.00-0.20); Basophils % (auto) 0.3 %; Eosinophils # (auto) 0.01 K/uL (0.00-0.50); Eosinophils % (auto) 0.1 %; Hematocrit (blood only) 36.2 % (37.0-47.0); Hemoglobin 11.8 g/dl (12.0-16.0); Immature Granulocytes # (auto) 0.05 K/uL (0.01-0.20); Immature Granulocytes % (auto) 0.4 %; Lymphocytes # (auto) 2.41 K/uL (1.20-3.40); Lymphocytes % (auto) 20.3 %; Mean Corpuscular Hemoglobin 30.6 pg (25.0-34.0); Mean Corpuscular Hgb Conc 32.6 g/dL (32.0-36.0); Mean Corpuscular Volume 93.8 fL (80.0-100.0); Mean Platelet Volume 11.5 fL (9.4-12.4); Monocytes # (auto) 1.04 K/uL (0.11-0.59); Monocytes % (auto) 8.8 %; Neutrophils # (auto) 8.32 K/uL (1.40-6.50); Neutrophils % (auto) 70.1 %; Platelet Count 131 K/uL (130-400); Platelet Estimate Normal (Normal); RDW Coefficient of Variation 13.2 % (11.5-14.5); RDW Standard Deviation 45.4 fL (36.4-46.3); Red Blood Count 3.86 M/uL (4.20-5.40); White Blood Count 11.87 K/ul (4.8-10.8)
--- NOTE | 2024-03-01 08:32 | Orthopedic Progress Note ---
Date of Service March 01, 2024 Assessment & Plan (1) Lumbar radiculopathy: Plan: Conchis is postoperative day 1 status post lumbar decompression and fusion of L5- S1. To start physical therapy today. Ambulate ad sim. Maintain SAM drain. Continue with pain control. Work on aggressive bowel regimen. Anticipate discharge home within the next 24 to 48 hours. Admission and Anticipated Discharge Date Admission Date: February 29, 2024 Subjective Conchis is postoperative day 1 status post PLIF L5-S1. She had an uneventful evening. Left leg pain is improved. She is up and ambulatory around her room. SAM drain output last shift was 55 cc. H&H this morning are 11.8 and 36.2 respectively Review of Systems Review of Systems: All systems reviewed & are unremarkable except as noted in HPI & below Physical Exam Physical Exam: She sitting up in bed reading a book in no acute distress Alert and oriented x 3 Strength intact bilateral lower extremities Calf soft nontender bilateral lower extremities lumbar dressing is clean dry and intact with functioning SAM drain Results & Data Vital Signs (Past 12 Hours) Vital Signs Temp Pulse Resp BP Pulse Ox O2 Del Method 03/01/24 07:19 37.0 C 70 16 110/57 L 97 Room Air 03/01/24 04:28 36.5 C 66 18 134/68 97 Room Air 02/29/24 23:00 36.5 C 88 18 121/75 95 Room Air
--- NOTE | 2024-03-01 11:24 | Hospitalist Progress Note ---
Date of Service March 01, 2024 Assessment & Plan (1) Lumbar radiculopathy: (2) S/P lumbar spine operation: (3) Hyperlipidemia: (4) Osteoarthritis: (5) Insomnia: (6) Acute blood loss as cause of postoperative anemia: Plan Conchis Kothari is a 63y/o F with PMHx of insomnia, vitamin D deficiency, hyperlipidemia, osteoarthritis, colitis and other problems listed below who was referred to the [facility] Team for further post-operative medical management. Patient is now s/p L5-S1 decompression and fusion for treatment of chronic, persistent back and leg pain. Lumbar Radiculopathy S/P L5-S1 Decompression & Fusion POD#1, EBL: 50mL pain/wound management per ortho activity and therapy as prescribed by ortho encourage incentive spirometry Acute blood loss anemia as post operative source of anemia 2/2 surgical procedure and blood loss via SAM drain, likely dilutional component as well pre op hgb 13.4 and today 11.8 repeat cbc in a.m. 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 IVF induced, monitor, repeat bmp in a.m. DVT Prophylaxis: SCDs - For now, as per ortho team Code Status: FULL CODE PCP: Domenico Lr DO Dispo: Admitted in Med/Surg - Will continue to follow pt until time of d/c, coordinating care w/ ortho spine (Dr. Avitia). Patient seen in collaboration with Dr. Villeda, Please see addendum. I spent a total of 40 minutes coordinating, documenting, and providing care for this patient excluding time spent in the performance of separately billed services. This included personally reviewing all current laboratories and imaging studies, medical reconciliation, outpatient chart review and discussion with specialists. Admission and Anticipated Discharge Date Admission Date: February 29, 2024 Supervising Physician Co-Signing Physician Notes Patient was seen and examined at bedside as a follow-up of medical management. Patient underwent lumbar spine surgery, POD 1. Patient reports pain fairly under control. Case discussed with the above provider. I spent an additional 15 minutes time in my on chart review, discussion with above provider, discussion/evaluation of patient at bedside. I have seen and examined the patient and have discussed the case with the provider above. I agree with the assessment and plan as stated. Subjective patient was seen and examined in 323. Follow-up lumbar surgery. She feels well this morning, but is complaining of some lumbar back discomfort and left lower extremity paresthesia. She states paresthesia was present prior to procedure and that she no longer has shooting pain down her left leg. She denies fever, chills, sweats, lightheadedness, dizziness, chest pain, shortness with, nausea or vomiting. She is tolerating diet. She is passing urine without difficulty. She is passing gas but has not yet moved her bowels. Review of Systems Review of Systems: All systems reviewed & are unremarkable except as noted in HPI & below Physical Exam Physical Exam: Gen: WD/WN, NAD, A&O x3 HEENT: Normocephalic, atraumatic, conjunctivae moist, sclerae anicteric, mucous membranes moist. Lung: Clear to Auscultation bilaterally, no wheezes/rales/rhonchi Heart: Regular rate, regular rhythm, no murmurs, rubs, or gallops Abdomen: Soft, NT, ND +BS x 4 Extremities: No edema, Lumbar dressing CDI, SAM drain with serosanguineous drainage Skin: Warm, no rash, negative turgor. Results & Data Results & Data Vital Signs (Past 12 Hours) Vital Signs Temp Pulse Resp BP Pulse Ox O2 Del Method 03/01/24 07:19 37.0 C 70 16 110/57 L 97 Room Air 03/01/24 04:28 36.5 C 66 18 134/68 97 Room Air Laboratory Results Short CBC 03/01/24 Range/Units 05:25 WBC 11.87 H (4.8-10.8) K/ul Hgb 11.8 L (12.0-16.0) g/dl Hct 36.2 L (37.0-47.0) % Plt Count 131 (130-400) K/uL BMP 03/01/24 05:25 Sodium 134 L Potassium 4.1 Chloride 104 Carbon Dioxide 26 BUN 9 Creatinine 0.63 Glucose 107 H Calcium 8.4 L Medications Administered Current Inpatient Medications Acetaminophen (Acetaminophen 500 Mg Tab) 1,000 mg PO Q8H PRN PRN Reason: MILD Pain Scale 1,2,3 & Pre PT Stop: 03/30/24 10:48 Acetaminophen (Acetaminophen 500 Mg Tab) 500 mg PO HS [facility] Stop: 03/30/24 20:59 Last Admin: 02/29/24 20:57 Dose: 500 mg Al Hydrox/Mg Hydrox/Simethicone (Aluminum/Magnesium Susp 30 Ml Udc) 30 ml PO Q6H PRN PRN Reason: Dyspepsia Stop: 03/30/24 10:48 Atorvastatin Calcium (Atorvastatin 10 Mg Tab) 10 mg PO [facility] Stop: 03/30/24 20:59 Last Admin: 02/29/24 20:58 Dose: 10 mg Bisacodyl (Bisacodyl 10 Mg Supp) 10 mg IA DAILY PRN PRN Reason: Constipation Stop: 03/30/24 10:48 Diphenhydramine HCl (Diphenhydramine Capsule 25 Mg Cap) 25 mg PO [facility] Stop: 03/30/24 20:59 Last Admin: 02/29/24 20:58 Dose: 25 mg Diphenhydramine HCl (Diphenhydramine Capsule 25 Mg Cap) 25 mg PO Q6H PRN PRN Reason: Allergic Rhinitis/Insomnia Stop: 03/30/24 10:48 Famotidine (Famotidine 20 Mg Tab) 20 mg PO Q12H PRN PRN Reason: Dyspepsia Stop: 03/30/24 10:48 Hydromorphone HCl (Hydromorphone Inj 0.5 Mg/0.5 Ml Syr) 0.5 mg IV Q3H PRN PRN Reason: MODERATE Pain (Scale 4,5,6) & Pre PT Stop: 03/14/24 10:48 Hydromorphone HCl (Hydromorphone Inj 1 Mg/Ml Syringe) 1 mg IV Q3H PRN PRN Reason: SEVERE Pain (Scale 7,8,9,10) Stop: 03/14/24 10:48 Hydroxyzine HCl (Hydroxyzine Hcl 25 Mg Tab) 25 mg PO Q8H PRN PRN Reason: Anxiety Stop: 03/30/24 10:48 Promethazine HCl 12.5 mg/ (Sodium Chloride) 50.5 mls @ 202 mls/hr IV Q6H PRN PRN Reason: Nausea &/or Vomiting Stop: 03/30/24 10:48 Lorazepam 0.5 mg/ Syringe 0.5 mls @ 2 mls/min IV Q8H PRN; Protocol PRN Reason: Sedation/Anxiety Stop: 03/30/24 10:48 Influenza Virus Vaccine Quadrival (Do Not Administer Flu Vaccine) 1 each N/A PRN PRN PRN Reason: Notification Stop: 03/30/24 10:48 Lorazepam (Lorazepam 0.5 Mg Tab) 0.5 mg PO Q8H PRN PRN Reason: Sedation/Anxiety Stop: 03/30/24 10:48 Magnesium Hydroxide (Magnesium Hydroxide Susp 30 Ml Udc) 30 ml PO Q24H PRN PRN Reason: Constipation Stop: 03/30/24 10:48 Metoclopramide HCl (Metoclopramide Hcl Inj 5 Mg/Ml 2 Ml Vial) 10 mg IV Q6H PRN PRN Reason: Nausea &/or Vomiting Stop: 03/30/24 10:48 Miscellaneous (Order Awaiting Action: Doxylamine) 1 each N/A QS BUTCH Stop: 03/30/24 15:59 Last Admin: 03/01/24 07:46 Dose: Not Given Naloxone HCl (Naloxone Hcl 0.4 Mg/1 Ml Vial/Carp) 0.1 mg IV Q5M PRN PRN Reason: Oversedation/Resp depression Stop: 03/30/24 10:48 Ondansetron HCl (Ondansetron Inj 2 Mg/Ml 2 Ml Vial) 4 mg IV Q6H PRN PRN Reason: Nausea &/or Vomiting Stop: 03/30/24 10:48 Ondansetron HCl (Ondansetron 4 Mg Od Tab) 4 mg PO Q6H PRN PRN Reason: Nausea Stop: 03/30/24 10:48 Oxycodone HCl (Oxycodone Hcl Ir 5 Mg Tab (Immediate Release)) 5 - 10 mg PO Q4H PRN PRN Reason: Pain & Pre PT Stop: 03/14/24 10:48 Last Admin: 03/01/24 07:45 Dose: 5 mg Pneumococcal Polyvalent Vaccine (Do Not Administer Pneumococcal Vaccine) 1 each N/A PRN PRN PRN Reason: Notification Stop: 03/30/24 10:48 Polyethylene Glycol (Polyethylene (Miralax) 17 Gm Pack) 17 gm PO Q6 BUTCH Stop: 03/31/24 05:59 Last Admin: 03/01/24 05:38 Dose: 17 gm Senna/Docusate Sodium (Docusate Sodium/Senna 50/8.6mg Tab) 2 tab PO HS BUTCH Stop: 03/30/24 20:59 Last Admin: 02/29/24 20:58 Dose: 2 tab Sodium Biphosphate/Sodium Phosphate (Sod Phosphate/Sod Biphosphate Enema 132 Ml Btl) 132 ml IA ONE PRN PRN Reason: Constipation Stop: 03/30/24 10:48 Tramadol HCl (Tramadol Hcl 50 Mg Tablet) 50 - 100 mg PO Q4H PRN PRN Reason: Moderate-Severe pain & Pre PT Stop: 03/30/24 10:48 Vitamin D (Cholecalciferol 125 Mcg (5,000 Units) Tab) 125 mcg PO BID BUTCH Stop: 03/30/24 20:59 Last Admin: 03/01/24 07:46 Dose: 125 mcg (3) Hyperlipidemia Hyperlipidemia type: unspecified Qualified Code(s): E78.5 - Hyperlipidemia, unspecified (4) Osteoarthritis Osteoarthritis location: unspecified site Osteoarthritis type: unspecified Qualified Code(s): M19.90 - Unspecified osteoarthritis, unspecified site (5) Insomnia Insomnia type: unspecified Qualified Code(s): G47.00 - Insomnia, unspecified
[2024-03-02 06:51] LABS: Hematocrit (blood only) 36.4 % (37.0-47.0); Hemoglobin 12.1 g/dl (12.0-16.0); Mean Corpuscular Hemoglobin 30.7 pg (25.0-34.0); Mean Corpuscular Hgb Conc 33.2 g/dL (32.0-36.0); Mean Corpuscular Volume 92.4 fL (80.0-100.0); Mean Platelet Volume 11.2 fL (9.4-12.4); Platelet Count 195 K/uL (130-400); RDW Coefficient of Variation 13.2 % (11.5-14.5); Red Blood Count 3.94 M/uL (4.20-5.40); White Blood Count 7.74 K/ul (4.8-10.8)
[2024-03-02 07:07] LABS: BUN Creatinine Ratio 13.6 (10-20); Calcium 8.8 mg/dl (8.6-10.3); Creatinine Clr Calc Pharmacy 78.8 ml/min; Est GFR (African American) 108.2 ml/min; Est GFR (Non-African American) 93.4 ml/min
--- NOTE | 2024-03-02 08:15 | Discharge Summary ---
Date of Service March 02, 2024 Admission HPI Per Admitting Provider This is a 63-year-old female presents with chronic persistent back and leg pain and failing since course of nonoperative care she is here for surgical invention. Admission Exam (Per Admitting) Constitutional WD/WN, vitals as above Eyes normal visual gonzalez by confrontation ENMT external ear and nose normal, oropharynx normal Neck normal visual inspection Respiratory normal respiratory effort Cardiovascular Extremities: normal capillary refill Gastrointestinal (Abdomen) Inspection/Auscultation: abdomen normal to inspection Musculoskeletal Spine: + pain with thoraco-lumbar ROM Extremities: extremities normal to inspection and strength 5/5 throughout Skin no rashes, warm and dry Neurologic normal touch/pain/proprioception and moves all extremities Psychiatric A+Ox3, euthymic affect Eye Contact: good eye contact Speech: normal rate/rhythm/volume of speech Discharge Data Consultations 02/29/24 10:49 Consult Hospitalist Routine Procedures Performed Operation Date: 02/29/24 07:45 Actual Procedures p L5-S1 Decompression and Fusion with Spinal Cord Monitoring(Not Applicable) - Андрей Avitia DO Hospital Course (1) Lumbar radiculopathy: Conchis is postoperative day 2 status post lumbar decompression and fusion of L5- S1. She had an uneventful postoperative course. Left lower extremity pain that she had preoperatively has resolved. She is up and ambulatory around the hallways and yesterday in physical therapy ambulate 375 feet. SAM drain output is 35 cc last shift. H&H are 12.1 and 36.4 respectively no other complaints. Still has some paresthesias in her left foot. She is being discharged home on postoperative day 2 Discharge Instructions ACTIVITY RECOMMENDATIONS: SELF CARE INSTRUCTIONS AFTER THORACIC/LUMBAR FUSIONS 1. You may walk to your tolerance. It is good exercise for your legs and back. Expect some back and intermittent leg aches and pains. 2. You may perform "counter-top" level activities (make a sandwich, feliberto with a project, etc.). 3. No bending or lifting of more than 10 pounds or back twisting of any nature (roll like a log when turning in bed). 4. You may ride in a car for 20-30 minutes at a time. No driving until after your first visit with your doctor. 5. Frequent changes of position and restricting sitting to 30 minutes at a time will help limit the amount of back spasms and stiffness you may experience. 6. You may discontinue the use of ambulatory aids (cane, crutches, etc.) once your strength and confidence allow. 7. You may classified advertising clerk the shower and let water strike your incision when you arrive home at least once daily. Do not take a tub bath, sit in a hot tub or go into a swimming pool until after your first recheck in the office. SPECIAL CARE INSTRUCTIONS: VERY IMPORTANT TO READ AND REVIEW A. Your surgical incision has been closed with a cosmetic suture under the skin that will dissolve in about 6 weeks. In 14 days, you can use a pair of clean scissors and cut the suture that is left outside of the skin at the ends of your incision. 1. The small skin tapes can be removed 7 days after surgery if they have not fallen off by that point. 2. You may keep the wound open to air as much as possible to promote healing after post-op day number 5 unless told otherwise by your doctor. 3. If you think the wound looks like it is becoming infected (redness or worsening drainage) and/or you are experiencing fever, chill or worsening back pain and muscle spasms, contact the office so that we may evaluate you as soon as possible. B. Complications are uncommon, but please contact us if you have any signs or symptoms of: 1. wound infection (fever higher than 102.5 degrees F, redness, separation of wound, drainage, or increasing pain from the incision) 2. blood clots in legs (pain, swelling, redness and warmth in legs) 3. urinary tract infection (fever higher than 102.5 degrees F, burning upon urination or increased frequency of urination) 4. nerve problems (inability to walk on your toes or heels, numbness, loss of bowel or bladder control) 5. any other symptoms that concern you C. Please call the office at if you have any concerns or questions about your operation or recovery. D. No smoking! Smoking drastically decreases the chance of a solid fusion. E. Do not take any anti-inflammatory medications (Indocin, Advil, Motrin, Aspirin, Naprosyn, etc.) as these may inhibit the chance of a solid fusion. Tylenol is okay to take for pain. MANAGING PAIN AFTER SPINAL SURGERY 1. Narcotic medication is intended for short-term use and will be provided for surgical pain. Surgical pain usually lasts for a period of 4-6 weeks. Narcotic medication includes Percocet, Vicodin, Darvocet, Tylenol #3 or Lortab. 2. Longer-term pain is more appropriately treated with non-narcotic medication such as Tylenol ES. 3. Muscle spasm is not appropriately treated with narcotics. Muscle relaxers such as Soma, Flexeril or Skelaxin can be used along with Tylenol ES. 4. Remember that we all live with some "aches and pains". This is not unusual or uncommon after an injury or as we get older. a. Back pain is expected and may include muscle spasms for 4 to 6 weeks after surgery. The pain should gradually improve. If the pain worsens for no apparent reason, please contact the office. b. Intermittent leg pain may also be experienced and should not be concerned about unless it worsens for no apparent reason. If so, please contact the office. 5. We will provide appropriate medication within the normal guidelines of their prescribed use. We will also be very cautious and aware of potential abuse and extended duration of patients' medication needs. a. Pain medications are for your comfort and to assist with sleep and rest so that the tissue can heal. They are not provided in order to return to normal activity and should not be used through the day. To do so or worsening pain at night can result from ongoing tissue damage and development of tolerance to the prescribed medicine. 6. Please allow 2-3 days to process refills. Prescriptions will not be mailed but must be picked up at the office. FOLLOW UP VISIT: Keep your scheduled follow-up appointment. Any questions, please call the office at .
--- NOTE | 2024-03-02 12:52 | Hospitalist Progress Note ---
Date of Service March 02, 2024 Assessment & Plan (1) Lumbar radiculopathy: (2) S/P lumbar spine operation: (3) Hyperlipidemia: (4) Osteoarthritis: (5) Insomnia: (6) Acute blood loss as cause of postoperative anemia: Destin Kothari is a 63y/o F with PMHx of insomnia, vitamin D deficiency, hyperlipidemia, osteoarthritis, colitis and other problems listed below who was referred to the [facility]ist Team for further post-operative medical management. Patient is now s/p L5-S1 decompression and fusion for treatment of chronic, persistent back and leg pain. Lumbar Radiculopathy S/P L5-S1 Decompression & Fusion POD#2, EBL: 50mL pain/wound management per ortho activity and therapy as prescribed by ortho encourage incentive spirometry Acute blood loss anemia as post operative source of anemia 2/2 surgical procedure and blood loss via SAM drain, likely dilutional component as well pre op hgb 13.4 and today 12.1 repeat cbc in a.m. Hyperlipidemia: On statin therapy [employer]; continue Osteoarthritis: Holding [employer] celecoxib for now as per ortho team Insomnia: Can continue [employer] Tylenol PM, doxylamine Mild Hyponatremia: Na downtrended from 134-139, and back to 140 today, likely IVF induced Dispo: Discharge to home today DVT Prophylaxis: SCDs - For now, as per ortho team Code Status: FULL CODE PCP: Domenico Lr, Patient seen in collaboration with Dr. Villeda, Please see addendum. I spent a total of 35 minutes coordinating, documenting, and providing care for this patient excluding time spent in the performance of separately billed services. This included personally reviewing all current laboratories and imaging studies, medical reconciliation, outpatient chart review and discussion with specialists. Admission and Anticipated Discharge Date Admission Date: February 29, 2024 Supervising Physician Co-Signing Physician Notes Patient was seen and examined at bedside as a follow-up of medical management. Patient underwent lumbar spine surgery, POD 1. Patient reports pain fairly under control. Case discussed with the above provider. I spent an additional 15 minutes time in my on chart review, discussion with above provider, discussion/evaluation of patient at bedside. I have seen and examined the patient and have discussed the case with the provider above. I agree with the assessment and plan as stated. Subjective patient was seen and examined in 323. Follow-up lumbar surgery. She feels good this morning, "I feel like I had back surgery." She denies f/c/s, chest pain, sob, n/v/d, abd pain. No BM but is passing flatus. She is tolerating diet. She still c/o numbness to L foot which was present prior to surg. Review of Systems Review of Systems: All systems reviewed & are unremarkable except as noted in HPI & below Physical Exam Physical Exam: Gen: WD/WN, NAD, A&O x3 sitting up in bedside chair reading a book HEENT: Normocephalic, atraumatic, conjunctivae moist, sclerae anicteric, mucous membranes moist. Lung: Clear to Auscultation bilaterally, no wheezes/rales/rhonchi Heart: Regular rate, regular rhythm, no murmurs, rubs, or gallops Abdomen: Soft, NT, ND +BS x 4 Extremities: No edema, Lumbar dressing CDI, SAM drain with serosanguineous drainage Skin: Warm, no rash, negative turgor. Results & Data Results & Data Vital Signs (Past 12 Hours) Vital Signs Temp Pulse Pulse Resp BP Pulse Ox O2 Del Method 03/02/24 09:20 36.8 C 75 93 H 16 130/84 97 03/02/24 08:00 Room Air 03/02/24 07:56 36.8 C 93 H 16 130/84 97 Room Air Laboratory Results Short CBC 03/02/24 Range/Units 06:23 WBC 7.74 (4.8-10.8) K/ul Hgb 12.1 (12.0-16.0) g/dl Hct 36.4 L (37.0-47.0) % Plt Count 195 (130-400) K/uL BMP 03/02/24 06:23 Sodium 140 Potassium 4.0 Chloride 106 Carbon Dioxide 29 BUN 9 Creatinine 0.66 Glucose 106 H Calcium 8.8 Medications Administered med rec was independently reviewed (3) Hyperlipidemia Hyperlipidemia type: unspecified Qualified Code(s): E78.5 - Hyperlipidemia, unspecified (4) Osteoarthritis Osteoarthritis location: unspecified site Osteoarthritis type: unspecified Qualified Code(s): M19.90 - Unspecified osteoarthritis, unspecified site (5) Insomnia Insomnia type: unspecified Qualified Code(s): G47.00 - Insomnia, unspecified
== END 2024-03-02 12:15 | disposition home or self-care (01) | DRG 454 ==
LOC: ASU 06:08 → 3E 09:28